=== PATIENT | female | born 1970 | race Caucasian/White ===

== ENCOUNTER 2023-12-16 15:51 | Inpatient (IN) | payer MEDICAID, OTHER ==
[~2023-12-16] VITALS: Ht 175.3 cm; Wt 81.6 kg
[~2023-12-16 15:51] MED LIST: ASPI-1444 PO; ATOR10TA PO
[2023-12-16] MEDS ORDERED: SERT-439 PO (16:19)
[2023-12-16] MEDS ORDERED: HYDR-4808 PO (16:19)
[2023-12-16] MEDS ORDERED: SIMV10TA97 PO (16:19)
[2023-12-16] MEDS ORDERED: RISP2TAB45 PO (16:19)
[2023-12-16] MEDS: CHARCOAL/SORBITOL 50 GM/240 ML SUSPENSION PO ONE (16:25)
[2023-12-16 16:36] LABS: BASOPHILS % (AUTO) 0.4 % (0.0-2.0); EOSINOPHILS % (AUTO) 0.1 % (1.0-6.0); HEMATOCRIT 36.4 % (36-46); HEMOGLOBIN 12.1 g/dL (12.0-16.0); LYMPHOCYTES # (AUTO) 1.4 K/uL (1.0-4.8); LYMPHOCYTES % (AUTO) 20.1 % (22.0-44.0); MEAN CORPUSCULAR HEMOGLOBIN 30.6 pg (26.0-34.0); MEAN CORPUSCULAR HGB CONC 33.2 G/dL (31.0-37.0); MEAN CORPUSCULAR VOLUME 92 fL (80-100); MONOCYTES # (AUTO) 0.5 K/uL (0.1-1.0); MONOCYTES % (AUTO) 6.8 % (2.0-9.0); NEUTROPHILS # (AUTO) 5.1 K/uL (1.8-7.7); NEUTROPHILS % (AUTO) 72.6 % (40.0-70.0); PLATELET COUNT (AUTO) 263 K/uL (150-450); RED BLOOD CELL COUNT(AUTO) 3.95 MIL/uL (4.00-5.20); WHITE BLOOD COUNT (AUTO) 7.1 K/uL (4.5-11.0)
[2023-12-16 16:45] LABS: ALCOHOL, BLOOD (SERUM) < 3 mg/dL (0-10)
[2023-12-16 16:48] LABS: TROPONIN I-HIGH SENSITIVITY 21 ng/L (<51)
[2023-12-16 16:51] LABS: LACTIC ACID 2.1 mmol/L (0.4-2.0)
[2023-12-16 16:52] LABS: ANION GAP 15 mmol/L (8-16); CARBON DIOXIDE 22 mmol/L (22-29); CHLORIDE 104 mmol/L (98-107); CREATININE 1.28 mg/dL (0.60-1.30); GLOMERULAR FILTR. RATE CALC 43 mL/min (>60); GLUCOSE,RANDOM 155 mg/dL (70-110); POTASSIUM 3.5 mmol/L (3.5-5.1); SALICYLATE 4.2 mg/dL (2.8-20.0); SODIUM SERUM 141 mmol/L (136-145); UREA NITROGEN, BLOOD 26 mg/dL (7-18)
[2023-12-16 16:56] LABS: LIPASE 21 U/L (16-77)
[2023-12-16 16:58] LABS: ACETAMINOPHEN < 2 mcg/mL (10-30)
[2023-12-16 19:35] LABS: APPEARANCE,URINE CLEAR (CLEAR); BILIRUBIN,URINE NEGATIVE (NEGATIVE); COLOR,URINE YELLOW (YELLOW); GLUCOSE, URINE (UA) NEGATIVE (NEGATIVE); KETONES,URINE NEGATIVE (NEGATIVE); LEUKOCYTE ESTERASE ,URINE NEGATIVE (NEGATIVE); NITRATE,URINE POSITIVE (NEGATIVE); OCCULT BLOOD,URINE TRACE (NEGATIVE); PH,URINE 5.5 (5.0-8.0); PH,URINE DRUG SCREEN 5.5 (5.0-8.0); PROTEIN,URINE TRACE mg/dL (NEGATIVE); SPECIFIC GRAVITIY, URINE 1.024 (1.003-1.030); UROBILINOGEN,URINE <=1.0 mg/dL (<=1.0)
[2023-12-16 19:42] LABS: ALCOHOL, URINE DRUG SCREEN NEGATIVE (NEGATIVE); AMPHET/METH SCREEN,URINE POSITIVE (NEGATIVE); BARBITURATE SCREEN, URINE NEGATIVE (NEGATIVE); BENZODIAZEPINES SCREEN,URINE NEGATIVE (NEGATIVE); CANNABINOID SCREEN,URINE NEGATIVE (NEGATIVE); COCAINE SCREEN,URINE NEGATIVE (NEGATIVE); METHADONE SCREEN, URINE NEGATIVE (NEGATIVE); OPIATE SCREEN,URINE NEGATIVE (NEGATIVE); PHENCYCLIDINE SCREEN,URINE NEGATIVE (NEGATIVE)
[2023-12-16 20:02] LABS: BACTERIA,URINE Many /HPF (None Seen); HYALINE CASTS, URINE 0-2 /LPF (None Seen); RBC,URINE 0-2 /HPF (0-2); SQUAMOUS EPITHELIAL CELL,UR Few /LPF (None Seen); WBC,URINE 0-2 /HPF (0-5)
[2023-12-16] MEDS ORDERED: MAG HYDROX/ALUMINUM HYD/SIMETH ES 30 ML SUSPENSION UDCUP PO PRN (20:45)
[2023-12-16] MEDS ORDERED: LOPERAMIDE HCL 2 MG CAPSULE PO PRN (20:45)
[2023-12-16] MEDS ORDERED: MAGNESIUM HYDROXIDE SUSPENSION 30 ML UDCUP PO PRN (20:45)
[2023-12-16] MEDS ORDERED: HALOPERIDOL 5 MG TABLET PO PRN (20:45)
[2023-12-17 09:12] LABS: COVID AG,FIA SOURCE NASAL SWAB
[2023-12-17 09:37] LABS: SARS-COV2 (COVID) ANTIGEN,FIA Negative (Negative)
[2023-12-18 08:55] VITALS: O2SAT 96
[2023-12-18] MEDS: LORazepam 2 MG TABLET PO PRN (12:10)
[2023-12-18 14:28] VITALS: BP 114/81; PULSE 100; RESP 16; TEMP 96.6; O2SAT 96
[2023-12-18] MEDS ORDERED: CloNIDine HCL 0.1 MG TABLET PO PRN (14:30)
[2023-12-18] MEDS ORDERED: LOPERAMIDE HCL 2 MG CAPSULE PO PRN (14:30)
[2023-12-18] MEDS ORDERED: ACETAMINOPHEN 325 MG TABLET PO PRN (14:30)
[2023-12-18] MEDS ORDERED: MAG HYDROX/ALUMINUM HYD/SIMETH ES 30 ML SUSPENSION UDCUP PO PRN (14:30)
[2023-12-18] MEDS ORDERED: ONDANSETRON 4 MG TABLET PO PRN (14:30)
[2023-12-18] MEDS ORDERED: MAGNESIUM HYDROXIDE SUSPENSION 30 ML UDCUP PO PRN (14:30)
[2023-12-18] MEDS ORDERED: DOCUSATE SODIUM 100 MG CAPSULE PO PRN (14:30)
[2023-12-18] MEDS ORDERED: ALBUTEROL SULFATE HFA 90 MCG/PUFF 8 GM INHALER IH PRN (14:30)
[2023-12-18] MEDS ORDERED: GuaiFENesin/D-METHORPHAN [SUGAR-FREE] 200-20MG/10 ML SYRUP UDCUP PO PRN (14:30)
[2023-12-18] MEDS ORDERED: PETROLATUM,WHITE 28 GM JELLY TP PRN (14:30)
[2023-12-18 20:34] VITALS: BP 120/77; PULSE 107; RESP 17; TEMP 97.4; O2SAT 98
[2023-12-18] MEDS: ZOLPIDEM TARTRATE 10 MG TABLET PO PRN (21:25)
[2023-12-18] MEDS: SIMVASTATIN 10 MG TABLET PO SCH (21:26)
[2023-12-19 08:06] VITALS: BP 133/68; PULSE 70; RESP 16; TEMP 98; O2SAT 97
[2023-12-19 08:34] LABS: HEMOGLOBIN A1C 5.6 % (3.8-5.6)
[2023-12-19] MEDS: ASPIRIN 81 MG DR TABLET PO SCH (08:36)
[2023-12-19 08:44] LABS: THYROID STIMULATING HORMONE 1.08 uIU/mL (0.36-3.74)
[2023-12-19] MEDS: SERTRALINE HCL 50 MG TABLET PO SCH (11:12)
[2023-12-19 20:00] VITALS: BP 110/71; PULSE 68; RESP 18; TEMP 97.1; O2SAT 98
[2023-12-19] MEDS: RisperiDONE 2 MG TABLET PO SCH (20:25)
[2023-12-20] MEDS: CEPHALEXIN MONOHYDRATE 500 MG CAPSULE PO SCH (08:17)
[2023-12-20 08:39] VITALS: BP 123/79; PULSE 82; RESP 16; TEMP 98.3; O2SAT 96
[2023-12-20] MEDS: ACETAMINOPHEN 325 MG TABLET PO PRN (19:37)
[2023-12-20 20:11] VITALS: BP 105/64; PULSE 89; RESP 17; TEMP 97.8; O2SAT 96
[2023-12-21 08:28] VITALS: BP 128/67; PULSE 79; RESP 16; TEMP 98; O2SAT 97
[2023-12-21 20:11] VITALS: BP 117/70; PULSE 68; RESP 19; TEMP 98; O2SAT 100
[2023-12-22 08:09] VITALS: BP 127/78; PULSE 85; RESP 16; TEMP 97.5; O2SAT 97
[2023-12-22 08:52] VITALS: BP 124/76; PULSE 86; RESP 16; TEMP 98; O2SAT 98
[2023-12-22] MEDS: IBUPROFEN 400 MG TABLET PO PRN (08:52)
[2023-12-22 09:52] VITALS: TEMP 97.8
[2023-12-22] MEDS: NICOTINE 14 MG/24 HOUR PATCH TD PRN (13:02)
[2023-12-22 21:13] VITALS: BP 149/79; PULSE 89; RESP 18; TEMP 97.1; O2SAT 97
[2023-12-23 08:08] VITALS: BP 105/68; PULSE 90; RESP 16; TEMP 96.9; O2SAT 96
[2023-12-23 16:15] VITALS: BP 118/76; PULSE 89; RESP 16; TEMP 97.2; O2SAT 98
[2023-12-23] MEDS ORDERED: SERT-439 PO (17:35)
[2023-12-23] MEDS ORDERED: SIMV10TA97 PO (17:35)
[2023-12-23] MEDS ORDERED: RISP-32 PO (17:35)
[2023-12-23] MEDS ORDERED: ASPI-1444 PO (17:35)
[2023-12-23 21:38] VITALS: BP 118/76; PULSE 89; RESP 16; TEMP 97.2; O2SAT 98
[2023-12-24 08:07] VITALS: BP 116/61; PULSE 96; RESP 16; TEMP 98; O2SAT 97
== END 2023-12-24 17:45 | disposition home or self-care (01) | DRG 817 ==
LOC: EMS 15:51 → UNDOADMIN 12-17 06:17 → EDH 12-17 06:17 → CANBEDREQ 12-17 14:37 → B3A 12-18 09:33
PROVIDERS: ADMIT Psychiatry & Neurology Psychiatry; ATTEND Psychiatry & Neurology Psychiatry
PROC: GZHZZZZ Group Psychotherapy (ICD-10-PCS; principal; 2023-12-19)
DX: T43.592A Poisoning by other antipsychotics and neuroleptics, intentional self-harm, initial encounter (principal); F25.1 Schizoaffective disorder, depressive type; G45.9 Transient cerebral ischemic attack, unspecified; E78.5 Hyperlipidemia, unspecified; I10 Essential (primary) hypertension; F11.10 Opioid abuse, uncomplicated; F15.10 Other stimulant abuse, uncomplicated; Z20.822 Contact with and (suspected) exposure to COVID-19; Z79.899 Other long term (current) drug therapy; Z86.73 Personal history of transient ischemic attack (TIA), and cerebral infarction without residual deficits; Z91.51 Personal history of suicidal behavior; R73.9 Hyperglycemia, unspecified; Y92.89 Other specified places as the place of occurrence of the external cause
CPT/HCPCS: 71045; 80048; 80061; 80307; 81001; 83036; 83605; 83690; 84443; 84484; 85025; 87086; 87186; 93005; 99285; G0378; G0480; G0481; 36415-L1; 36415-TC